=== PATIENT | female | born 1950 | race Caucasian/White ===

== ENCOUNTER → 2017-11-23 | Outpatient (CLI) | payer MEDICARE ==
[~2017-11-23] MED LIST: LEVOTHYROXIN; PREMPRO
== END ==
LOC: LAB 09:49
PROVIDERS: ATTEND Urology
DX: N39.0 Urinary tract infection, site not specified (principal); B96.20 Unspecified Escherichia coli [E. coli] as the cause of diseases classified elsewhere
CPT/HCPCS: 81001; 87077; 87088; 87186

== ENCOUNTER → 2018-03-18 | Outpatient (CLI) | payer MEDICARE | LOC: LAB 09:11 | PROVIDERS: ATTEND Urology | DX: N39.0 Urinary tract infection, site not specified (principal); B96.20 Unspecified Escherichia coli [E. coli] as the cause of diseases classified elsewhere | CPT/HCPCS: 81001; 87077; 87088; 87186 ==

== ENCOUNTER → 2018-10-26 | Outpatient (CLI) | payer MEDICARE ==
--- NOTE | 2018-10-27 11:20 | RADIOLOGY IMAGING REPORT ---
FACILITY: [facility] - [place] PATIENT NAME: BO GARCIA : [id number] MR: [id number] V: [id number] EXAM DATE: ORDERING PHYSICIAN: BHARATI JACKSON TECHNOLOGIST: Aylin Skinner PROCEDURE:BILATERAL DIGITAL SCREENING MAMMOGRAM WITH CAD ASSISTED INTERPRETATION & 3D TOMOSYNTHESIS COMPARISON:Prior mammograms 10/21/17, 10/07/16, 10/02/15, 10/01/14, 09/20/13, 09/19/12. INDICATIONS:SCREENING FINDINGS: There are scattered of fibroglandular density in both breasts. The parenchymal pattern has remained stable allowing for difference in mammographic technique & patient positioning. There is no evidence of malignant appearing mass, malignant appearing calcifications or other secondary sign of malignancy in either breast. DIAGNOSTIC CATEGORY 1--NEGATIVE. RECOMMENDATIONS: ROUTINE MAMMOGRAM AND CLINICAL EVALUATION. IMPRESSION: BIRADS 1: Negative. No significant abnormality is seen. Dictated by: Rachel Colon M.D. on 10/26/2018 at 16:40 Transcribed by: MARICEL on 10/27/2018 at 8:25 Approved by: Rachel Colon M.D. on 10/27/2018 at 11:19 [facility]
== END ==
LOC: MAMO 00:45
PROVIDERS: ATTEND Nurse Practitioner Family
DX: Z12.31 Encounter for screening mammogram for malignant neoplasm of breast (principal)
CPT/HCPCS: 77063; 77067

== ENCOUNTER → 2019-02-07 | Outpatient (CLI) | payer MEDICARE ==
[2019-02-07 14:27] LABS: PLATELET COUNT, AUTOMATED 247 K/uL (150-450)
--- NOTE | 2019-02-07 14:27 | EKG ---
FACILITY: [facility] - [place] PATIENT NAME: BO GARCIA : [id number] MR: [id number] V: [id number] EXAM DATE: ORDERING PHYSICIAN: LB KAPLAN TECHNOLOGIST: NONI Llamas Reason : CP Blood Pressure : / mmHG Vent. Rate : 055 BPM Atrial Rate : 055 BPM P-R Int : 128 ms QRS Dur : 090 ms QT Int : 406 ms P-R-T Axes : 080 090 085 degrees QTc Int : 388 ms Sinus bradycardia Rightward axis Minimal voltage criteria for LVH, may be normal variant T inversion consistent with septal ischemia vs normal variant When compared with ECG of 09-NOV-2018 14:40, Now with septal T inversion vs lead placement Confirmed by SUZETTE CARRILLO ([id number]) on 02/07/2019 6:56:35 PM Referred By: LAILA KAPLAN Confirmed By:SUZETTE CARRILLO
== END ==
LOC: LAB 14:09
PROVIDERS: ATTEND Nurse Practitioner Family
DX: R00.1 Bradycardia, unspecified (principal); R07.9 Chest pain, unspecified
CPT/HCPCS: 36415; 82040; 82247; 82310; 82374; 82435; 82565; 82947; 84075; 84132; 84155; 84295; 84443; 84450; 84460; 84484; 84520; 85025; 85379; 93005

== ENCOUNTER → 2019-02-08 | Outpatient (CLI) | payer MEDICARE ==
[~2019-02-08] MED LIST changes: +IOPAMIDOL 76% 150 ML INFUS BTL 150 ML ONE; +NS 0.9% 25 ML BAG 50 ML ONE
--- NOTE | 2019-02-08 15:39 | RADIOLOGY IMAGING REPORT ---
FACILITY: [facility] PATIENT NAME: Flory Howell : 1950 MR: [id number] V: [id number] EXAM DATE: ORDERING PHYSICIAN: LAILA KAPLAN TECHNOLOGIST: [place] [facility] [place] : 1950 Visit/Account:[id number] Date of Sevice: 02/08/2019 CT CTA CHEST W & W/O CON HISTORY: Chest pain. Elevated d-dimer. ADDITIONAL HISTORY: None. TECHNIQUE: CTA chest with intravenous contrast. Axial imaging acquired following administration of IV contrast timed for maximum opacification of the pulmonary arterial vasculature. Slab 3-D MIP nathan nstructed images were also created for further evaluation and interpretation. Reconstruction of the [facility] data set includes multiplanar 2-D in the sagittal and coronal planes and 3-D reconstructed gerard nal slab MIP series. 3-D images were created by the technologist. One of the following dose optimiz ation techniques was utilized in the performance of this exam: Automated exposure control; adjustment of the mA and/or kV according to the patient's size; or use of an iterative reconstruction techniqu e. Specific details can be referenced in the facility's radiology CT exam operational policy. CONTRAST: 75 mL Isovue-370 COMPARISON: None. FINDINGS: Lungs/pleura: Lung parenchyma is well-aerated. Heart/vessels: Negative. There are no filling defects seen in the pulmonary arteries worrisome for a pulmonary embolus. Mediastinum/lymph nodes: Negative. Visualized upper abdomen: Negative. Bones/soft tissues: There is concavity seen in the superior endplate of T12 which is only partially captured within the field of view and probably represents a Schmorl's node. Osseous structures other barbosa unremarkable. Additional findings: None IMPRESSION: No acute pathology identified. No evidence of pulmonary embolus. T12 superior endplate concavity likely Schmorl's node. If patient has back pain recommend lumbar rad iographs for further evaluation. Report Dictated By: Micah Quinones MD at 02/08/2019 3:28 PM Report E-Signed By: Micah Quinones MD at 02/08/2019 3:34 PM WSN:[id number]
== END ==
LOC: CT 06:46
PROVIDERS: ATTEND Nurse Practitioner Family
DX: Z01.812 Encounter for preprocedural laboratory examination (principal); R07.9 Chest pain, unspecified; R79.1 Abnormal coagulation profile
CPT/HCPCS: 71275; Q9967

== ENCOUNTER → 2019-04-07 | Outpatient (CLI) | payer MEDICARE ==
[~2019-04-07] MED LIST changes: -IOPAMIDOL 76% 150 ML INFUS BTL 150 ML ONE; -NS 0.9% 25 ML BAG 50 ML ONE
== END ==
LOC: AUD 10:00
PROVIDERS: ATTEND Otolaryngology
DX: H69.83 Other specified disorders of Eustachian tube, bilateral (principal)
CPT/HCPCS: 92557; 92570